=== PATIENT | female | born 1985 | race Caucasian/White ===

== ENCOUNTER → 2017-04-15 | Outpatient (CLI) | payer OTHER ==
--- NOTE | 2017-04-15 15:10 | REP ---
DIAGNOSTIC MAMMOGRAM RIGHT BREAST: Diagnostic mammogram of the right breast performed with multiple spot compression views obtained. Correlation made with the recent mammogram of 04/12/2017 at [facility] and compared to other prior exams including 09/10/2015 and 06/24/2014. The asymmetric tissue in the medial right breast has remained stable since 09/10/2015 and does not appear to be suspicious. No acute findings are seen. IMPRESSION: ACR 2 benign. Stable appearance of the right breast compared to prior exam 09/10/2015. BI-RADS/ACR category 2 mammogram. Benign finding(s). Routine annual screening mammography (for women over age 40). The patient letter being requested is M1. Signed by Escobar Bhardwaj MD 04/15/2017 05:25 P
== END ==
LOC: M RAD 14:16
PROVIDERS: ATTEND Family Medicine
DX: N64.89 Other specified disorders of breast (principal)